=== PATIENT | female | born 1955 | race Two or more races ===

== ENCOUNTER 2024-11-24 06:41 | Emergency (ER) | payer OTHER, MEDICAID, SELFPAY ==
[2024-11-24 06:44] VITALS: BMI 30.7
[2024-11-24 06:49] VITALS: BP 198/95; PULSE 68; RESP 22; TEMP 36.9; O2SAT 98
--- NOTE | 2024-11-24 06:52 | EKG_ITS ---
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
--- NOTE | 2024-11-24 07:22 | XR_ITS ---
Examination: PA lateral chest 2 views TECHNIQUE: Upright PA lateral chest 2 views Date and time: November 24, 2024, 0805 hours, comparison May 25, 2021 INDICATIONS: Chest pain today. FINDINGS: Atelectasis versus early pneumonia right middle lobe Minor atelectasis left base. Normal heart size No pulmonary edema IMPRESSION: Atelectasis versus early pneumonia right middle lobe, clinical correlation advised
[2024-11-24 07:54] LABS: Basophils # (Auto) 0.0 Thou/mm3 (0.0-0.2); Basophils % (Auto) 1 % (0-2.5); Eosinophils # (Auto) 0.2 Thou/mm3 (0.0-0.5); Eosinophils % (Auto) 3 % (0-10); Hematocrit 40.4 % (36.0-46.0); Hemoglobin 12.6 g/dL (12.0-16.0); Immature Granulocytes Auto 0.04 Thou/mm3 (0.00-0.00); Lymphocytes # (Auto) 1.3 Thou/mm3 (1.0-4.8); Lymphocytes % (Auto) 21 % (10-50); Mean Corpuscular HGB Conc 31.2 g/dl (31.0-37.0); Mean Corpuscular Hemoglobin 28.4 pg (25.0-35.0); Mean Corpuscular Volume 91 fL (80-100); Monocytes # (Auto) 0.6 Thou/mm3 (0.0-0.8); Monocytes % (Auto) 9 % (0-12); Neutrophils # (Auto) 4.1 Thou/mm3 (1.8-7.7); Neutrophils % (Auto) 65 % (37-80); Nucleated Red Blood Cell # 0.00 Thou/mm3 (0.00-0.00); Nucleated Red Blood Cell % 0 /100 WBC (0); Platelet Count 280 Thou/mm3 (140-440); RDW Standard Deviation 44.6 fL (36.4-46.3); Red Blood Count 4.44 Miln/mm3 (4.00-5.20); White Blood Count 6.3 Thou/mm3 (3.6-11.0)
[2024-11-24 08:12] LABS: Alanine Aminotransferase 25 U/L (10-49); Albumin, Serum 4.5 gm/dL (3.4-4.8); Albumin/Globulin Ratio 1.7 (1.2-2.2); Alkaline Phosphatase 71 U/L (46-116); Anion Gap 7 (7-16); Aspartate Amino Transferase 16 U/L (0-34); BUN/Creatinine Ratio 8 Ratio (12-20); Bilirubin,Total 0.4 mg/dL (0.3-1.2); Blood Urea Nitrogen 11 mg/dL (9-23); Calcium 9.5 mg/dL (8.3-10.6); Calcium (Corrected) 9.5 mg/dL (8.5-10.1); Carbon Dioxide 27.6 mMol/L (20.0-31.0); Chloride 105 mMol/L (98-107); Creatinine (Component) 1.3 mg/dL (0.6-1.3); Estimated Creatinine Clearance 45.2 mL/min (>60); Globulin 2.7 gm/dL (2.3-3.5); Glucose 152 mg/dL (74-106); Osmolality,Calculated 281 (275-295); Potassium 4.1 mMol/L (3.4-5.1); Sodium 140 mMol/L (136-145); Total Protein 7.2 gm/dL (5.7-8.2); Troponin I < 0.020 ng/mL (0.0-0.045); eGFR 45 See Note
--- NOTE | 2024-11-24 08:55 | EDNOTE_ITS ---
ED General RME/HPI General Chief complaint: General Adult/Misc Complain Stated complaint: CHEST PAIN, COUGH, SOB,VOMITING Time Seen by Provider: 11/24/24 07:09 Arrival date/time: 11/24/24 06:41 69-year-old female presents to the Emergency Department today for complaints of cough, congestion, generalized bodyaches and shortness of breath. Patient for symptom onset last couple days reports that the back symptoms better or worse quality aching in nature no radiation of symptoms severity moderate reports no treatment prior to arrival Limitations: no limitations Related Data Previous Rx's ?Medication ?Instructions ?Recorded indomethacin 50 mg capsule 50 mg PO TID #15 caps 04/05 ibuprofen 800 mg tablet 800 mg PO TID PRN pain #30 t abs 09/02/19 Ventolin HFA 90 mcg/actuation 2 puff inhalation Q6H HI N 11/24/24 aerosol inhaler (albuterol sulfate) shortness of breat h or wheezing #18 grams azithromycin 500 mg tablet See Rx Instructions PO .COM PLEX #6 11/24/24 tabs benzonatate 100 mg capsule 100 mg PO TID #14 caps 11/02 06/25 prednisone 20 mg tablet 20 mg PO BID 3 days #6 tabs 11/24/24 Allergies Allergy/AdvReac Type Severity Reaction Status Date / Time ampicillin Allergy Severe Swelling Verified 11/24/24 06:42 of Lip/Tongue/Throat morphine Allergy Severe ITCHING Verified 11/24/24 06:42 Penicillins Allergy Severe Swelling Verified 11/24/24 06:42 of Lip/Tongue/Throat Review of Systems Review of Systems Systems Reviewed: All systems reviewed, normal except as documented Constitutional Constitutional: Reports system reviewed and no additional complaints, except as documented, Denies fever(s) and Denies headache(s) Eyes Eyes: Reports system reviewed and no additional complaints, except as documented and Denies blurry vision ENT Ears, Nose, Mouth, and Throat: Reports system reviewed and no additional complaints, except as documented, Denies headache(s), Denies nasal congestion and Denies nasal discharge Cardiovascular Cardiovascular: Reports system reviewed and no additional complaints, except as documented, Denies chest pain and Denies dyspnea Respiratory Respiratory: Reports system reviewed and no additional complaints, except as documented, Reports chest congestion, Reports cough and Denies dyspnea Gastrointestinal Gastrointestinal: Reports system reviewed and no additional complaints, except as documented and Denies abdominal pain Integumentary/Breasts Skin/Breast: Reports system reviewed and no additional complaints, except as documented and Denies rash Neurologic Neurologic: Reports system reviewed and no additional complaints, except as documented, Reports as per HPI and Denies headache(s) Past Medical History Past Medical History NEUROLOGIC: Negative Cerebrovascular Accident or Alzheimer's Disease CARDIAC: Negative Myocardial Infarction, Angina or Congestive Heart Failure RESPIRATORY: Positive Smoking and Tobacco Use; Negative Chronic Obstructive Pulmonary Disease (COPD) GASTROINTESTINAL: Positive Hemorrhoids; Negative Liver Cancer or Pancreatic Cancer GENITOURINARY: Negative Renal Disease MUSCULOSKELETAL: Negative Bone Cancer ENDOCRINE: Positive Diabetes Mellitus Type 2; Negative Diabetes Mellitus Type 1 OTHER HISTORY: Negative Down Syndrome or Developmental Delay Social History SMOKING STATUS: Former smoker ED Exam General Limitations: Present no limitations General appearance: Present alert and in no apparent distress Head Head exam: Present atraumatic, normocephalic and normal inspection Eye Eye exam: Present normal appearance, PERRL and EOMI; Absent conjunctival injection ENT ENT exam: Present normal exam, normal oropharynx and mucous membranes moist Neck Neck exam: Present normal inspection, full ROM and trachea midline Chest Chest inspection: Present normal inspection and symmetric chest wall rise Respiratory Respiratory exam: Present normal lung sounds bilaterally; Absent respiratory distress Cardiovascular Cardiovascular exam: Present regular rate, normal rhythm and normal heart sounds; Absent bradycardia, tachycardia or irregular rhythm Abdominal Exam Abdominal exam: Present soft and normal bowel sounds; Absent distention, tenderness, guarding, rebound or rigidity Extremities Exam Extremities exam: Present normal inspection and full ROM Back Exam Back exam: Present normal inspection and full ROM Neurological Exam Neurological exam: Present alert, oriented X3 and CN II-XII intact Psychiatric Psychiatric exam: Present normal affect and normal mood Skin Skin exam: Present warm, dry, intact and normal color Course Quality Measures none Orders Category Date Time Status Bedside COVID-19 Antigen Test NOW Care 11/24/24 07:22 Active EKG (ED ONLY) *Do not use* NOW Care 11/24/24 06:52 Active EKG (ED Only) Stat Exams 11/24/24 06:52 Draft XR chest 2V Stat Exams 11/24/24 07:22 Completed CBC Stat Lab 11/24/24 07:37 Completed Comprehensive Metabolic Panel Stat Lab 11/24/24 07:37 Completed Troponin I Stat Lab 11/24/24 07:37 Completed Vital Signs Vital signs: Vital Signs Temperature 98.5 F 11/24/24 06:49 Pulse Rate 68 11/24/24 06:49 Respiratory Rate 22 H 11/24/24 06:49 Blood Pressure 198/95 H 11/24/24 06:49 Pulse Oximetry (%) 98 11/24/24 06:49 Oxygen Delivery Method Room Air 11/24/24 06:49 O2 saturation 98% on room air within normal limits PROCEDURES: EKG Interpretation #1: Date of EK11/24/24 Time of EK:54 Rate: 65 Interpretation: Interpreted by me EKG Impression: Normal sinus rhythm, No acute ST-T changes, No ectopy, No ischemic changes, Normal QRS, Normal intervals and Normal axis Discharge Plan Plan Patient Disposition: HOME (Self Care) Discharge Disposition comment: Stable Prescriptions/Referrals Prescriptions/Med Rec: New prednisone 20 mg tablet 20 mg PO BID 3 Days Qty: 6 0RF benzonatate 100 mg capsule 100 mg PO TID Qty: 14 0RF albuterol sulfate [Ventolin HFA] 90 mcg/actuation HFA aerosol inhaler 2 puff inhalation Q6H PRN (Reason: shortness of breath or wheezing) Qty: 18 0RF azithromycin 500 mg tablet See Rx Instructions .ROUTE .COMPLEX Qty: 6 0RF Rx Instructions: take 500 mg today (day 1), then 250 mg for 4 days (days 2-5) No Action ibuprofen 800 mg tablet 800 mg PO TID PRN (Reason: pain) Qty: 30 0RF indomethacin 50 mg capsule 50 mg PO TID Qty: 15 0RF Rx Instructions: administer with food or milk Referrals: Piero Colin MD [Primary Care Provider] - 11/25/24 Problem List Clinical Impression: URI (upper respiratory infection) Patient/Caregiver Discharge Instructions Education Materials: ED URI, Viral, No Abx (Adult) Additional Instructions: Please follow up with your primary care doctor in the next 24-48hrs for any worsening symptoms return here immediately Print Language: Belizean Stand Alone Forms: [facility] Award Info., Patient Portal Info Letter 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 pastor HARVEY Narrative MDM hospital course (for use when minimal MDM required): 69-year-old female presents to the Emergency Department today for complaints of cough, congestion, generalized bodyaches and shortness of breath. Patient for symptom onset last couple days reports that the back symptoms better or worse quality aching in nature no radiation of symptoms severity moderate reports no treatment prior to arrival On exam patient well-appearing patient does not appear look toxic no acute distress patient is no tachypnea or dyspnea no critical bradycardia EKG obtained no acute emergent findings noted Chest x-ray obtained atelectasis versus pneumonia per radiologist patient patient with course of antibiotics Lab work obtained no acute emergent findings noted Symptoms highly consistent with viral illness Patient discharged home in no distress to follow-up with primary care doctor in the next 24 to 48 hours and for any worsening symptoms to return to the ER immediately Clinical Information Provided by: patient Medical Records reviewed [facility] Meds/Rx considered, not ordered describe: Rx given Labs/Rad/Tests considered, not ordered Describe: Obtained Chronic Illness/Social Conditions which may negatively complicate care or outcome(s)-explain: None or not applicable Labs Labs: none and interpreted by me Lab(s) Interpretation(s): Reviewed by me Imaging Imaging interpretation: interpreted by me Imaging Interpretation(s): Reviewed by me Medication Administration(s) Given Rx Diagnosis Differential Diagnosis ED Complaint MDM: URI, COVID-19, influenza, pneumonia
[2024-11-24 11:19] VITALS: BP 124/82; PULSE 77
== END 2024-11-24 11:20 | disposition home or self-care (01) ==
PROVIDERS: Nurse Practitioner Primary Care; Emergency Provider Emergency Medicine; PCP Internal Medicine Pulmonary Disease
DX: J06.9 Acute upper respiratory infection, unspecified (principal)
CPT/HCPCS: 36415; 71046; 80053; 84484; 85025; 99283

== ENCOUNTER → 2024-12-01 | Outpatient (CLI) | payer OTHER, MEDICAID, SELFPAY ==
--- NOTE | 2024-12-01 09:53 | XR_ITS ---
Examination: Lumbar spine 3 views TECHNIQUE: AP lateral coned lateral lower lumbar spine 3 views Date and time: December 01, 2024 1010 hours INDICATIONS: Low back pain 40 years FINDINGS: Thoracolumbar levoscoliosis 17 degrees Short angle lower lumbar dextroscoliosis 14 degrees No lumbar fracture Diffuse advanced lumbar degenerative disc disease with spinal stenosis Prominent lumbar spondylosis IMPRESSION: Diffuse advanced lumbar degenerative disc disease with spinal stenosis
--- NOTE | 2024-12-01 09:53 | XR_ITS ---
Examination: Bilateral hips, AP pelvis, 5 views Technique: AP, lateral views both hips, AP pelvis, 5 views Exam date and time: December 01, 2024 1002 hours INDICATIONS: Patient fell one year ago with injury to left hip, left hip pain. FINDINGS: No right or left hip fracture or dislocation Moderate bilateral hip osteoarthritis Bones of the pelvis intact IMPRESSION: Moderate bilateral hip osteoarthritis
== END | disposition home or self-care (01) ==
LOC: SDIM 09:27
PROVIDERS: PCP Internal Medicine Pulmonary Disease; Referring Provider Internal Medicine Pulmonary Disease; Visit Provider Internal Medicine Pulmonary Disease
DX: M51.360 Other intervertebral disc degeneration, lumbar region with discogenic back pain only (principal); M48.061 Spinal stenosis, lumbar region without neurogenic claudication; M16.0 Bilateral primary osteoarthritis of hip; S79.912S Unspecified injury of left hip, sequela; W19.XXXS Unspecified fall, sequela
CPT/HCPCS: 72100; 73522